=== PATIENT | female | born 1970 | race Caucasian/White ===

== ENCOUNTER 2018-01-19 12:06 | Emergency (ER) | payer BC ==
[~2018-01-19] VITALS: Ht 167.6 cm; Wt 66.9 kg
[~2018-01-19 12:06] MED LIST: CIPR500T4 PO; LORTA5 PO; SULF1TAB47 PO
[2018-01-19 12:13] VITALS: BP 155/70; PULSE 70; RESP 18; TEMP 98.1; O2SAT 100
--- NOTE | 2018-01-19 12:47 | PD ---
HPI Chief Complaint: Abdominal Pain Time Seen by Provider: 12:47 Travel History International Travel<30 days: No Contact w/Intl Traveler<30days: No Traveled to known affect area: No History of Present Illness HPI 47-year-old female came to the emergency room with history of lower abdominal pain since yesterday. The pain started yesterday in the lower part of the abdomen bilateral and in the center along with some diarrhea and nausea. No blood in the stool. Patient did not make much of it and thought it could be gas. However this morning when she woke up the pain was still there and it hurts more when she would stand up or walk. No history of fever or chills. No history of vomiting. Patient has never had this kind of pain in the past. No history of dysuria or hematuria. Patient had a colonoscopy 15 years ago since there is a family history of colon cancer and at that time the colonoscopy was negative. Patient has not had any more colonoscopy since then. Currently she says the pain is bearable. Vital signs were stable. Patient says the diarrhea has stopped. She did not have any bowel movement today. [facility] Past Medical History Narrative Medical List of her past medical, surgical, social and family history is reviewed from the nursing note. Diminished Hearing: No Tetanus Vaccination: > 5 Years Influenza Vaccination: No ?: Not LMP: TWO WEEKS AGO : 1 Para: 1 Past Surgical History Section: Yes Tonsillectomy: Yes Social History Alcohol Use: Yes (OCCASSIONAL) Tobacco Use: No Substance Use: No Allergies-Medications (Allergen,Severity, Reaction): Coded Allergies: amoxicillin (Unverified Allergy, Severe, Anaphylaxis, 01/19/18) THROAT CLOSES UP clavulanic acid (Unverified Allergy, Severe, Anaphylaxis, 01/19/18) THROAT CLOSES UP Comments List of his allergies reviewed from the nursing note. Reported Meds & Prescriptions Reported Meds & Active Scripts Active Ibuprofen 600 Mg Tab 600 Mg PO Q6H PRN Flagyl (Metronidazole) 250 Mg Tab 250 Mg PO TID 7 Days Narrative Medication List of his home medications reviewed from the nursing note. Review of Systems Except as stated in HPI: all other systems reviewed are Neg Gastrointestinal: Positive: Nausea, Diarrhea, Abdominal Pain Physical Exam Narrative GENERAL: Awake, alert, mild distress SKIN: Focused skin assessment warm/dry. HEAD: Atraumatic. Normocephalic. EYES: Pupils equal and round. No scleral icterus. No injection or drainage. ENT: No nasal bleeding or discharge. Mucous membranes pink and moist. NECK: Trachea midline. No JVD. CARDIOVASCULAR: Regular rate and rhythm. No murmur appreciated. RESPIRATORY: No accessory muscle use. Clear to auscultation. Breath sounds equal bilaterally. GASTROINTESTINAL: Abdomen soft, tenderness in left and right lower quadrant on moderate palpation, nondistended. Hepatic and splenic margins not palpable. MUSCULOSKELETAL: No obvious deformities. No clubbing. No cyanosis. No edema. NEUROLOGICAL: Awake and alert. No obvious cranial nerve deficits. Motor grossly within normal limits. Normal speech. PSYCHIATRIC: Appropriate mood and affect; insight and judgment normal. Data Data Last Documented VS Vital Signs Date Time Temp Pulse Resp B/P (MAP) Pulse Ox O2 Delivery O2 Flow Rate FiO2 01/19/18 15:23 70 12 142/85 (104) 98 Room Air 01/19/18 12:13 98.1 Orders Orders Complete Blood Count With Diff (01/19/18 12:52) Comprehensive Metabolic Panel (01/19/18 12:52) Lipase (01/19/18 12:52) Urinalysis - C+S If Indicated (01/19/18 12:52) Ct Abd/Pel W Iv Contrast(Rout) (01/19/18 12:52) Iv Access Insert/Monitor (01/19/18 12:52) Ecg Monitoring (01/19/18 12:52) Oximetry (01/19/18 12:52) Sodium Chlor 0.9% 1000 Ml Inj (Ns 1000 M (01/19/18 12:52) Sodium Chloride 0.9% Flush (Ns Flush) (01/19/18 13:00) Iohexol 350 Inj (Omnipaque 350 Inj) (01/19/18 14:14) Us Pelvis Comp W Transvaginal (01/19/18 ) Gc And Chlamydia Pcr (01/19/18 15:46) Wet Prep Profile (01/19/18 15:46) Ibuprofen (Motrin) (01/19/18 16:45) Metronidazole (Flagyl) (01/19/18 16:45) Azithromycin Powd Pack (Zithromax Powd P (01/19/18 16:45) Ceftriaxone Inj (Rocephin Inj) (01/19/18 16:45) Ed Discharge Order (01/19/18 16:40) Lidocaine 1% Inj (Xylocaine 1% Inj) (01/19/18 17:00) Labs Laboratory Tests Test 01/19/18 12:50 01/19/18 16:30 White Blood Count 5.6 TH/MM3 Red Blood Count 3.94 MIL/MM3 Hemoglobin 12.2 GM/DL Hematocrit 35.6 % Mean Corpuscular Volume 90.3 FL Mean Corpuscular Hemoglobin 31.0 PG Mean Corpuscular Hemoglobin Concent 34.3 % Red Cell Distribution Width 12.5 % Platelet Count 218 TH/MM3 Mean Platelet Volume 9.6 FL Neutrophils (%) (Auto) 52.3 % Lymphocytes (%) (Auto) 39.1 % Monocytes (%) (Auto) 7.6 % Eosinophils (%) (Auto) 0.8 % Basophils (%) (Auto) 0.2 % Neutrophils # (Auto) 3.0 TH/MM3 Lymphocytes # (Auto) 2.2 TH/MM3 Monocytes # (Auto) 0.4 TH/MM3 Eosinophils # (Auto) 0.0 TH/MM3 Basophils # (Auto) 0.0 TH/MM3 CBC Comment DIFF FINAL Differential Comment Urine Collection Type CLEAN CATCH Urine Color YELLOW Urine Turbidity CLEAR Urine pH 5.0 Urine Specific [place] GREATER/EQUAL 1.030 Urine Protein NEG mg/dL Urine Glucose (UA) NEG mg/dL Urine Ketones NEG mg/dL Urine Occult Blood NEG Urine Nitrite NEG Urine Bilirubin NEG Urine Urobilinogen 0.2 MG/DL Urine Leukocyte Esterase NEG Urine RBC 0-3 /hpf Urine Squamous Epithelial Cells 0-5 /hpf Microscopic Urinalysis Comment CULT NOT INDICATED Urine Collection Time 12:50 Blood Urea Nitrogen 11 MG/DL Creatinine 0.72 MG/DL Random Glucose 83 MG/DL Total Protein 7.5 GM/DL Albumin 3.6 GM/DL Calcium Level 8.9 MG/DL Alkaline Phosphatase 63 U/L Aspartate Amino Transf (AST/SGOT) 59 U/L Alanine Aminotransferase (ALT/SGPT) 62 U/L Total Bilirubin 0.3 MG/DL Sodium Level 138 MEQ/L Potassium Level 3.5 MEQ/L Chloride Level 104 MEQ/L Carbon Dioxide Level 28.9 MEQ/L Anion Gap 5 MEQ/L Estimat Glomerular Filtration Rate 88 ML/MIN Lipase 192 U/L Clue Cells (Wet Prep) NONE SEEN Vaginal Trichomonas (Wet Prep) NONE SEEN Vaginal Yeast (Wet Prep) NONE SEEN MDM Medical Decision Making Medical Screen Exam Complete: Yes Emergency Medical Condition: Yes Medical Record Reviewed: Yes Differential Diagnosis Acute diverticulitis, acute appendicitis, colitis, UTI Narrative Course 1:43 PM blood test results are back and LFTs are minimally elevated. Rest of the test is also within normal limits. Awaiting for a CAT scan of the abdomen and pelvis to be done and resulted. 4:05 PM as per the radiologist it is coming from her left ovary. It is 2.5 cm. There is minimal fluid in cul-de-sac. Upon asking patient said she has noticed some discharge vaginally. I will do a pelvic exam and GC and chlamydia. 4:33 PM pelvic exam was done. Patient had copious amount of whitish discharge and significant CMT with left adnexal tenderness. Based on this have decided to treat her for PID. She is getting IM Rocephin, p.o. Zithromax and p.o. Flagyl. She will be medicated for pain and discharge. I have asked her to follow-up with her [employer] TECHNICIAN. Procedures EKG Prior to Arrival: No Diagnosis Primary Impression: Pelvic pain in female Additional Impressions: PID (acute pelvic inflammatory disease) Ovarian cyst Qualified Codes: N83.202 - Unspecified ovarian cyst, left side Referrals: Radha Kemp MD 1 week Additional Instructions: Please follow-up with your [employer] TECHNICIAN within 1 week. Take the medication as per the prescription direction. [place] with condom only for next 3 weeks. Return to the ER if condition worsens any other new concerns. You can apply warm compress in the pelvic area for pain relief in addition. Do not drink alcohol while on Flagyl. It will give your bad reaction. Med/Other Pt SpecificInfo: Prescription(s) given Scripts Ondansetron Odt (Zofran Odt) 4 Mg Tab 4 MG SL Q6HR Y for Nausea/Vomiting, #15 TAB 0 Refills Prov: Malvin Cornejo MD 01/19/18 Ibuprofen (Ibuprofen) 600 Mg Tab 600 MG PO Q6H Y for Pain/Inflammation, #40 TAB 0 Refills Prov: Malvin Cornejo MD 01/19/18 Metronidazole (Flagyl) 250 Mg Tab 250 MG PO TID for Infection for 7 Days, TAB 0 Refills Prov: Malvin Cornejo MD 01/19/18 Disposition: 01 DISCHARGE HOME Condition: Stable Malvin Cornejo MD January 19, 2018 12:47
[2018-01-19 12:50] VITALS: O2SAT 98
[2018-01-19] MEDS ORDERED: SODIUM CHLOR 0.9% 1000 ML INJ 1,000 ML IV SCH (12:52)
[2018-01-19] MEDS ORDERED: SODIUM CHLORIDE 0.9% FLUSH 10 ML FLUSH IV FLUSH PRN (13:00)
[2018-01-19 13:04] LABS: BILIRUBIN, URINE NEG (NEG); BLOOD, URINE NEG (NEG); GLUCOSE,URINE NEG (NEG); KETONE, URINE NEG (NEG); NITRITE,URINE NEG (NEG); URINE COLOR YELLOW (YELLW/STRAW); URINE LEUKOCYTE ESTERASE NEG (NEG)
[2018-01-19 13:06] LABS: BASOPHIL % 0.2 % (0.0-2.0); EOSINOPHIL % 0.8 % (0.0-4.0); HEMATOCRIT 35.6 % (35.0-46.0); HEMOGLOBIN 12.2 GM/DL (11.6-15.3); LYMPH % 39.1 % (9.0-44.0); LYMPHOCYTE # 2.2 TH/MM3 (1.0-4.8); MEAN CELL VOLUME 90.3 FL (80.0-100.0); MEAN CORPUSCULAR HGB CONC 34.3 % (32.0-36.0); MEAN PLATELET VOLUME 9.6 FL (7.0-11.0); MONO % 7.6 % (0.0-8.0); MONOCYTE # 0.4 TH/MM3 (0-0.9); NEUT % 52.3 % (16.0-70.0); PLATELET COUNT 218 TH/MM3 (150-450); RED BLOOD COUNT 3.94 MIL/MM3 (4.00-5.30); RED CELL DISTRIBUTION WIDTH 12.5 % (11.6-17.2); WHITE BLOOD COUNT 5.6 TH/MM3 (4.0-11.0)
[2018-01-19 13:18] LABS: RBC, URINE 0-3 /hpf (0-3); SQUAMOUS EPITHELIAL CELL URINE 0-5 /hpf (0-5)
[2018-01-19 13:29] LABS: CHLORIDE 104 MEQ/L (98-107); SODIUM (NA) 138 MEQ/L (136-145)
[2018-01-19 13:33] LABS: ALBUMIN 3.6 GM/DL (3.4-5.0); CALCIUM 8.9 MG/DL (8.5-10.1)
[2018-01-19 13:34] LABS: BICARBONATE 28.9 MEQ/L (21.0-32.0); BLOOD UREA NITROGEN 11 MG/DL (7-18); GLUCOSE,RANDOM 83 MG/DL (74-106)
[2018-01-19 13:36] LABS: ALT (GPT) 62 U/L (10-53); AST (GOT) 59 U/L (15-37)
[2018-01-19 13:37] LABS: CREATININE 0.72 MG/DL (0.50-1.00); GLOMERULAR FILTRATION RATE 88 ML/MIN (>89)
[2018-01-19 13:38] LABS: TOTAL BILIRUBIN ADULT 0.3 MG/DL (0.2-1.0); TOTAL PROTEIN 7.5 GM/DL (6.4-8.2)
[2018-01-19 13:39] LABS: ALKALINE PHOSPHATASE 63 U/L (45-117)
[2018-01-19 13:41] VITALS: BP 147/83; PULSE 65; RESP 16; O2SAT 100
[2018-01-19] MEDS ORDERED: IOHEXOL 350 MG/ML 10 ML VIAL (for RAD DIAG) IVCONTRAST ONE (14:14)
--- NOTE | 2018-01-19 14:30 | RADRPT ---
EXAM DATE/TIME: 01/19/2018 14:00 [facility] COMPARISON: No previous studies available for comparison. INDICATIONS : Lower abdominal pain x 2 days. IV CONTRAST: 85 cc Omnipaque 350 (iohexol) IV ORAL CONTRAST: No oral contrast ingested. RADIATION DOSE: 7.33 CTDIvol (mGy) MEDICAL HISTORY : None SURGICAL HISTORY : section. ENCOUNTER: Initial ACUITY: 2 days PAIN SCALE: 8/10 LOCATION: Bilateral lower quadrant TECHNIQUE: Volumetric scanning of the abdomen and pelvis was performed. Using automated exposure control and ad justment of the mA and/or kV according to patient size, radiation dose was kept as low as reasonably achievable to obtain optimal diagnostic quality images. DICOM format image data is available electro nically for review and comparison. FINDINGS: LOWER LUNGS: The visualized lower lungs are clear. LIVER: Homogeneous density without lesion. There is no dilation of the biliary tree. No calcified gallston es. SPLEEN: Normal size without lesion. PANCREAS: Within normal limits. KIDNEYS: Normal in size and shape. There is no mass, stone or hydronephrosis. ADRENAL GLANDS: Within normal limits. VASCULAR: There is no aortic aneurysm. BOWEL/MESENTERY: The stomach, small bowel, and colon demonstrate no acute abnormality. There is no free intraperitone al air or fluid. ABDOMINAL WALL: Within normal limits. RETROPERITONEUM: There is no lymphadenopathy. BLADDER: No wall thickening or mass. REPRODUCTIVE: 2. 2 cm cystic mass left adnexal region. No free fluid INGUINAL: There is no lymphadenopathy or hernia. MUSCULOSKELETAL: Within normal limits for patient age. CONCLUSION: 2.2 cm cystic mass left adnexal region, no fluid No inflammatory changes evident Danilo Beltran MD FACR on January 19, 2018 at 14:24 Board Certified Radiologist. This report was verified electronically.
[2018-01-19 15:23] VITALS: BP 142/85; PULSE 70; RESP 12; O2SAT 98
--- NOTE | 2018-01-19 15:53 | RADRPT ---
EXAM DATE/TIME: 01/19/2018 15:07 [facility] COMPARISON: No previous studies available for comparison. INDICATIONS : Pelvic pain and prior abnormal Cat Scan. MEDICAL HISTORY : Pelvic pain. SURGICAL HISTORY : Tummy tuck. Tonsillectomy. ENCOUNTER: Initial ACUITY: 2 days PAIN SCORE: 7/10 LOCATION: Bilateral pelvis MEASUREMENTS: UTERUS: 8.6 x 5.3 x 4.6 cm ENDOMETRIAL STRIPE: 8 mm RIGHT OVARY: 1.1 x 2.6 x 1.7 cm LEFT OVARY: 3.2 x 4.1 x 2.1 cm FINDINGS: There is a small fluid in the lower endometrial cavity around the cervix. Also small nabothian cysts. Right ovary unremarkable except for 1.2 cm follicular cysts. Larger 2.7 cm cyst in the left ovary. Sm aller free fluid. Positive blood flow to both ovaries. CONCLUSION: 1. 2.7 cm left ovarian cyst. Fluid in lower uterine segment endometrial cavity. Small amount free flu id. Jose G Cochran MD on January 19, 2018 at 15:48 Board Certified Radiologist. This report was verified electronically.
[2018-01-19] MEDS ORDERED: IBUP-232 PO (16:39)
[2018-01-19] MEDS ORDERED: METR250 PO (16:39)
[2018-01-19] MEDS ORDERED: LIDOCAINE HCL 1% 50 ML VIAL IM ONE (16:45)
[2018-01-19] MEDS ORDERED: metroNIDAZOLE 500 MG TAB PO ONE (16:45)
[2018-01-19] MEDS ORDERED: IBUPROFEN 600 MG TAB PO ONE (16:45)
[2018-01-19] MEDS ORDERED: cefTRIAXone 250 MG VIAL IM ONE (16:45)
[2018-01-19] MEDS ORDERED: AZITHROMYCIN PWD FOR SUSP 1 GM PACKET PO ONE (16:45)
[2018-01-19] MEDS ORDERED: LIDOCAINE HCL 1% 30 ML VIAL IM ONE (17:00)
[2018-01-19] MEDS ORDERED: ZOFR4TAB3 SL (17:17)
[2018-01-19 17:31] VITALS: BP 150/95; PULSE 79; RESP 12; O2SAT 99
== END 2018-01-19 17:33 | disposition home or self-care (01) ==
LOC: PHED 12:06
DX: N73.9 Female pelvic inflammatory disease, unspecified (principal); N83.202 Unspecified ovarian cyst, left side
CPT/HCPCS: 74177; 76830; 76856; 80053; 81001; 83690; 85025; 87210; 87491; 87591; 96360; 96372; 99284; J0696; J7030; Q9967